=== PATIENT | male | born 1965 | race Caucasian/White ===

== ENCOUNTER 2016-07-28 14:53 | Inpatient (IN) | payer OTHER, MEDICAID ==
[~2016-07-28] VITALS: Ht 182.9 cm; Wt 106.6 kg
[~2016-07-28 14:53] MED LIST: /AUGM875TA PO; /BACL20TA PO; /CELE20CA OR; /ESOM40CA OR; ACET65TA OR; ALLE25CA PO; AMLO2.5T OR; AMLODIPINE PO; ASPI81TA3 OR; ATOR40TA PO; AUGM875T27 PO; BACT800T5 PO; BENA25CA PO; BRIN10TA PO; BUDE150T OR; COLA100C2 OR; CYCL10TA PO; CYMB60CA3 PO; DULO1CAP2 PO; ENDOCET PO; FENO145T PO; FENO54TA2 PO; FLEXERIL PO; HYDR12.55 PO; HYDR25TA6 OR; HYDROCHLORIZIDE PO; INSUH10VL; INSULIN PUMP; INSURSDRX SC; LAC-12LO3 TOP; LISI40TA OR; LYRI150C PO; MELOPOW PO; MILKSUS PO; MIRA255PW PO; MOM30SS PO; MULTIVIT PO; NEXI40CA PO; NOVOINJ3 SC; OXYC15TA50 OR; OXYC15TA50 PO; OXYC30TA4 PO; OXYCO5TA PO; PERC5TAB6 PO; PERC5TAB8 OR; PERCOCET PO; PRAM0.5T4 PO; PREG50CA OR; ROCE1INJ4 IV; TRAM50TA2 PO; TYLE325T5 PO; VITA500T OR; XANA0.25 PO; XANA0.5T OR; XANA0.5T PO; ZINC220C OR; ZOLO100T OR; endocet PO; fleets enema PR
[2016-07-28] MEDS ORDERED: LISI2.5T3 (15:07)
[2016-07-28] MEDS ORDERED: DULO1CAP2 PO (15:07)
[2016-07-28] MEDS ORDERED: AMLO2.5T (15:07)
[2016-07-28] MEDS ORDERED: MORPHINE 4 MG/ML 1ML SYRINGE IV ONE (16:15)
[2016-07-28] MEDS ORDERED: NS 1,000 ML IV ONE (16:15)
[2016-07-28] MEDS ORDERED: ONDANSETRON 4MG/2ML VIAL (J2405) IV ONE (16:15)
[2016-07-28] MEDS ORDERED: CEFTAROLINE FOSAMIL 600 MG in D5W MINI-BAG PLUS 50 ML IV ONE (16:15)
[2016-07-28 17:09] LABS: BASO # 0.1 K/mm3 (0.0-0.2); BASO % 0.6 % (0.0-1.0); EOS # 0.4 K/mm3 (0.0-0.50); EOS % 2.4 % (0.0-3.0); LARGE UNSTAINED CELL # 0.3 K/mm3 (0.0-0.4); LARGE UNSTAINED CELL % 2.1 % (0.0-4.0); LYMPH # 3.2 K/mm3 (1.5-4.5); LYMPH % 19.7 % (24.0-44.0); MEAN CORPUSCULAR HEMOGLOBIN 29.5 pg (27.0-33.0); MEAN CORPUSCULAR HGB CONC 32.8 g/dl (32.0-36.5); MEAN CORPUSCULAR VOLUME 89.9 fl (80.0-96.0); MONO # 1.2 K/mm3 (0.0-0.8); MONO % 7.2 % (0.0-5.0); NEUTROPHILS # 10.9 K/mm3 (1.8-7.7); PLATELET COUNT, AUTOMATED 409 k/mm3 (150-450)
--- NOTE | 2016-07-28 17:44 | REP ---
LEFT FOOT, FOUR VIEWS: HISTORY: 3rd toe infection. There is absence of the tuft of the distal phalange of the 1st digit. There is no acute fracture or dislocation. The joint spaces are normal in appearance. There is soft-tissue swelling of the 3rd digit. A defect is present in the soft-tissue overlying the distal phalange of the 3rd digit. IMPRESSION: There is no acute fracture or dislocation. Signed by Charles Hay MD 07/29/2016 08:16 A
[2016-07-28 18:18] LABS: ALBUMIN 2.9 GM/DL (3.2-5.2); ALBUMIN/GLOBULIN RATIO 0.83 (1.00-1.93); BILIRUBIN,DIRECT 0.2 MG/DL (0.0-0.2); BILIRUBIN,TOTAL 0.4 MG/DL (0.2-1.0); CALCIUM LEVEL 8.1 MG/DL (8.5-10.1); CREATININE FOR GFR 1.95 MG/DL (0.70-1.30); GLOMERULAR FILTRATION RATE 39.1 (>60); TOTAL PROTEIN 6.4 GM/DL (6.4-8.2)
[2016-07-28 18:19] LABS: POTASSIUM SERUM 5.9 MEQ/L (3.5-5.1)
[2016-07-28] MEDS ORDERED: LYRI300C PO (18:35)
[2016-07-28] MEDS ORDERED: AMLO2.5T PO (18:35)
[2016-07-28] MEDS ORDERED: LISI2.5T3 PO (18:35)
[2016-07-28] MEDS ORDERED: GLUCOSE 4 GM CHEW TABLET PO PRN (18:45)
[2016-07-28] MEDS ORDERED: ACETAMINOPHEN TAB 650MG DOSE (2X325MG) PO PRN (18:45)
[2016-07-28] MEDS ORDERED: ALPRAZolam 0.25 MG TAB PO PRN (18:45)
[2016-07-28] MEDS ORDERED: GLUCAGON FOR INJ 1 MG VIAL (J1610) SC PRN (18:45)
[2016-07-28] MEDS ORDERED: ONDANSETRON 4 MG TAB (S0181) PO PRN (18:45)
[2016-07-28] MEDS ORDERED: ONDANSETRON 4MG/2ML VIAL (J2405) IV PRN (18:45)
[2016-07-28] MEDS ORDERED: DEXTROSE 50% 50 ML SYRINGE IV PRN (18:45)
[2016-07-28] MEDS ORDERED: SOD POLYSTYRENE SULFONATE SUSP 15 GM/60 ML UD PO ONE (19:15)
--- NOTE | 2016-07-28 19:23 | HPEPDOC ---
Medical History and Physical Date of Admission Jul 28, 2016 at 18:44 History and Physical HISTORY AND PHYSICAL Date of admission: 07/28/2016 PCP: Dr. Fischer at [facility] Chief complaint: My shower maid told me to come to the hospital HPI: 50-year-old male with type 1 diabetes mellitus, hypertension, hyperlipidemia, fibromyalgia, depression who presented with worsening erythema and open sore on his left third toe. He reports that he has been following with podiatry for several months for this wound, and last week he was started on Bactrim. He is concerned today that it was getting more red and starting to spread into his calf, so he called his shower maid. His shower maid saw him in the office today, and recommended that he come immediately to the emergency department. Past medical history: Diabetes mellitus type 1, hypertension, hyperlipidemia, fibromyalgia, depression Past surgical history: Splenectomy, hernia repair, orthopedic spine surgery, cholecystectomy, appendectomy, amputation of right great toe Family history: Diabetes mellitus in his father, hypertension and CVA in multiple family members Social history: The patient currently smokes less than half a pack per day. He uses occasional marijuana with the last use being over the weekend. He also reports that he drinks approximately 2 times weekly. If he is drinking by himself, he states he usually has about 1 drink. However, he states if he is drinking with his friends, he has an entire 12 pack. Patient does not currently work as he is disabled Allergies: Fentanyl, hydromorphone, morphine, oxycodone Review of systems: General: Negative for fever and chills Eyes: Negative for vision changes and ocular discharge ENT: Negative for sore throat and nose bleed Cardiovascular: Negative for palpitations. Positive for chest pain yesterday that was located centrally and felt like someone was putting a lot of pressure on his chest. He states that he saw his primary care physician at the time, he did an EKG and was unconcerned. He is not having chest pain currently. Respiratory: Positive for cough. Negative for shortness of breath GI: Positive for 1 episode of emesis last night. Negative for nausea, diarrhea, constipation Musculoskeletal: Positive for chronic neck and back pain that is at baseline Skin: Positive for erythema of the left calf, as well as chronic open sore of the left third toe Neuro: Positive for dizziness. Negative for headache. Positive for chronic numbness and tingling in all 4 extremities secondary to his diabetic neuropathy. Psych: Negative for suicidal ideation and depression Endocrine: Negative for polyuria : Negative for dysuria Heme: Negative for Bruising and bleeding Home meds: See below Physical exam: Vital signs: Vital Sign - Last 24 Hours 07/28/16 07/28/16 07/28/16 07/28/16 14:54 16:14 16:42 17:00 Temp 99.5 99.1 Pulse 111 Resp 20 18 18 B/P 162/82 Pulse Ox 99 O2 Delivery Room Air 07/28/16 17:48 Temp 98.6 Pulse 98 Resp 20 B/P 131/71 Pulse Ox 95 O2 Delivery Room Air Gen.: awake, alert, no acute distress Eyes: Extraocular movements intact, normal sclera ENT: Moist mucous membranes Cardiovascular: RRR, no murmurs rubs or gallops Lungs: clear to auscultation bilaterally, no rales, rhonchi, or wheeze Abdomen: Soft, NT/ND, normal BS Musculoskeletal: normal range of motion Extremities: No peripheral edema of RLE; LLE has open draining wound on 3rd toe with erythema and edema extending into the calf Neuro: alert and oriented 3, normal speech, no focal deficits Psych: Normal mood with congruent affect Labs and radiology: See below White count 16.1 Blood and wound cultures are pending Lactate is unremarkable K 5.9 Creatinine 1.95 CRP 15.4 Assessment and plan: 50-year-old male with type 1 diabetes mellitus, hypertension, hyperlipidemia, fibromyalgia, depression who was admitted with cellulitis of the left lower extremity. 1. Cellulitis of the left lower extremity: Given the patient's diabetes and long -standing wound, we will get an MRI to assess for possible osteomyelitis. Blood and wound cultures are already pending. We will also start the patient on vancomycin, as well as Zosyn for pseudomonal coverage. CRP is elevated at 15.6, and we will continue to trend. The patient also has a leukocytosis of 16, however, he is afebrile. 2. Hyperkalemia: Potassium is 5.9 upon admission. We will get a stat EKG. The patient also receive a dose of Kayexalate and we'll recheck his potassium in 6 hours. We will hold his home KELTON inhibitor. If there are any EKG changes, we will monitor him on telemetry. Diabetes mellitus type 1: We will continue the patient on his home insulin pump. We will do before meals and at bedtime fingersticks, but the patient will cover himself with insulin pump. 4. Hypertension: Continue home Norvasc. As mentioned above, we'll be holding the home KELTON inhibitor. 5. Depression and fibromyalgia: Continue home Flexeril, Cymbalta, Xanax, Lyrica , and tramadol. 6. Hyperlipidemia: Continue home statin. 7. Chest pain: The patient reports that yesterday while he was seen his primary care physician, he experienced some central chest pain that felt like something heavy was on his chest. He states that the time, his PCP did an EKG and was unconcerned. We will trend cardiac markers. 8. Chronic kidney disease: This is most likely secondary to the patient's long- standing diabetes. It is unclear exactly what stage the patient is or what his baseline creatinine is. Upon today's labs his creatinine is 1.95, and the most recent creatinine we have is several years ago which was in the low to mid ones. We will be holding the patient's home KELTON inhibitor and we'll continue to closely monitor his creatinine. DVT prophylaxis: Renally dosed Lovenox Dispo: admit as inpatient to the service of Dr. Najera CODE STATUS: Full Code Vital Signs see above Laboratory Data Labs 24H Laboratory Tests 2 07/28/16 16:47: White Blood Count 16.0H, Red Blood Count 3.73L, Hemoglobin 11.0L, Hematocrit 33.6L, Mean Corpuscular Volume 89.9, Mean Corpuscular Hemoglobin 29.5, Mean Corpuscular Hemoglobin Concent 32.8, Red Cell Distribution Width 13.0, Platelet Count 409, Neutrophils (%) (Auto) 68.0H, Lymphocytes (%) (Auto) 19.7L, Monocytes (%) (Auto) 7.2H, Eosinophils (%) (Auto) 2.4, Basophils (%) (Auto) 0.6 , Neutrophils # (Auto) 10.9H, Lymphocytes # (Auto) 3.2, Monocytes # (Auto) 1.2H , Eosinophils # (Auto) 0.4, Basophils # (Auto) 0.1, Lactic Acid (Sepsis) 1.8, Large Unclassified Cells # 0.3, Large Unclassified Cells % 2.1 07/28/16 17:45: Aspartate Amino Transf (AST/SGOT) 23, Alanine Aminotransferase (ALT/SGPT) 26, Alkaline Phosphatase 124H, Total Bilirubin 0.4, Direct Bilirubin 0.2, Albumin 2.9L, Albumin/Globulin Ratio 0.83L, Anion Gap 5L, C-Reactive Protein, Quantitative 15.40H, Calcium Level 8.1L, Glomerular Filtration Rate 39.1L, Total Protein 6.4 CBC/BMP Laboratory Tests 07/28/16 16:47 Red Blood Count 3.73 L, Mean Corpuscular Volume 89.9, Mean Corpuscular Hemoglobin 29.5, Mean Corpuscular Hemoglobin Concent 32.8, Red Cell Distribution Width 13.0, Neutrophils (%) (Auto) 68.0 H, Lymphocytes (%) (Auto) 19.7 L, Monocytes (%) (Auto) 7.2 H, Eosinophils (%) (Auto) 2.4, Basophils (%) ( Auto) 0.6, Neutrophils # (Auto) 10.9 H, Lymphocytes # (Auto) 3.2, Monocytes # ( Auto) 1.2 H, Eosinophils # (Auto) 0.4, Basophils # (Auto) 0.1 07/28/16 17:45 Microbiology Microbiology 07/28/16 Blood Culture, Received Pending 07/28/16 Gram Stain, Received Pending 07/28/16 Wound Culture, Received Pending Home Medications Scheduled Amlodipine Besylate (Amlodipine Besylate) 2.5 Mg Tab 2.5 MG PO DAILY Atorvastatin Calcium (Atorvastatin Calcium) 40 Mg Tab 40 MG PO DAILY Cyclobenzaprine HCl (Cyclobenzaprine HCl) 10 Mg Tab 10 MG PO DAILY Duloxetine Hcl (Duloxetine HCl) 30 Mg Cap 30 MG PO DAILY STARTED 30MG FOR 7 DAYS ON 07/27, THEN INCREASING TO 60 MG Esomeprazole Magnesium Trihydr (Nexium) 40 Mg Cap 40 MG PO DAILY Fenofibrate (Fenofibrate) 54 Mg Tab 54 MG PO DAILY Insulin Aspart (Novolog) 100 U/Ml Inj 0 ASDIRECTED INSULIN PUMP Insulin Human Regular (Humulin R) 1 Units/0.01 Ml Soln 1 DOSE SC ASDIRECTED FOR INSULIN PUMP FAILURE Lisinopril (Lisinopril) 2.5 Mg Tab 2.5 MG PO DAILY Pregabalin (Lyrica) 300 Mg Cap 300 MG PO TID Scheduled PRN Alprazolam (Xanax) 0.25 Mg Tab 0.25 MG PO TID PRN PRN ANXIETY Lactic Acid (Lac-Hydrin) 12 % Lot 1 DOSE TOP BID PRN PRN DRY SKIN APPLIES TO LEGS AND FEET Tramadol HCl (Tramadol HCl) 50 Mg Tab 50-100 MG PO Q4H PRN PRN PAIN TOOK 2 TABS 0730 AND 1 TAB AT 1300 MDD=8 TABS Allergies Coded Allergies: Hydromorphone (Verified Allergy, Intermediate, RASH, 08/24/12) Oxycodone (Unverified Allergy, Unknown, RASH, CAN TAKE WITH BENADRYL, ) Fentanyl (Verified Adverse Reaction, Mild, ITCHING, 11/06/12) Morphine (Verified Adverse Reaction, Mild, ITCHING, 07/28/16) pt states he is not allergic to morphine it just makes him "itch after 2 or 3 doses". OK to take RUBIN LEO Jul 28, 2016 19:23
[2016-07-28] MEDS ORDERED: VANCOMYCIN HCL 1,000 MG, VIAL MATE ADAPTER 1 EACH in D5W 250 ML IV ONE (21:00)
[2016-07-28 21:50] VITALS: BP 134/72
--- NOTE | 2016-07-28 21:50 | REPUSA ---
MRI of the left foot Clinical statement: cellulitis, rule out osteomyelitis. Technique: Multiecho multiplanar MRI images of the left foot were obtained within without administrat ion of intravenous gadolinium contrast. No comparison is available. Findings: The osseous structures demonstrate uniform and normal bone marrow signal. No osseous tumors or masses are appreciated. There is no evidence of any acute fractures. The joints are well maintain ed. Mild superficial soft tissue swelling in the dorsum of the foot is noted. There is no focal soft tissue mass or fluid collection identified. Impression: 1. No evidence for osteomyelitis. 2. Mild superficial soft tissue swelling along the dorsum of the foot.
[2016-07-28] MEDS ORDERED: VANCOMYCIN HCL 500 MG in D5W MINI-BAG PLUS 100 ML IV ONE (22:00)
[2016-07-28] MEDS: PREGABALIN 100 MG CAP (LYRICA) PO SCH (22:29)
[2016-07-28] MEDS: traMADol 50 MG TAB PO PRN (22:30)
--- NOTE | 2016-07-28 23:55 | PHACANCOPD ---
PHARMACY VANCOMYCIN DOSING Pt Demographics Demographics Patient Age:50 , Weight:106.594 , Gender: male Events Past 24 Hours Events Past 24 Hours: NO: Change in CrCl, Dialysis, Diuretic Therapy, Elevation in WBC, Fever, Other, Pending Diagnostics, Pending Procedures Vancomycin Vancomycin Target Ranges: 15-20 mcg/ml Vancomycin Load Y/N: Yes Load Dose Date Time Vancomycin Load Dose: 1.5GM Date: 07/28/16 Time: 21:00 Vancomycin Dose Date: 07/29/16. Current Vancomycin Dose: [1GM IV Q24H 06:00] Intermittent Dosing?: No Labs Labs Laboratory Tests 07/28/16 16:47 Red Blood Count 3.73 L, Mean Corpuscular Volume 89.9, Mean Corpuscular Hemoglobin 29.5, Mean Corpuscular Hemoglobin Concent 32.8, Red Cell Distribution Width 13.0, Neutrophils (%) (Auto) 68.0 H, Lymphocytes (%) (Auto) 19.7 L, Monocytes (%) (Auto) 7.2 H, Eosinophils (%) (Auto) 2.4, Basophils (%) ( Auto) 0.6, Neutrophils # (Auto) 10.9 H, Lymphocytes # (Auto) 3.2, Monocytes # ( Auto) 1.2 H, Eosinophils # (Auto) 0.4, Basophils # (Auto) 0.1 07/28/16 17:45 Micro Microbiology 07/28/16 Blood Culture, Received Pending 07/28/16 Gram Stain, Received Pending 07/28/16 Wound Culture, Received Pending Creatinine Clearance Date:07/28/16. Creatinine Clearance: [<50 ml/min]. Assessment and Plan Maintaining Current Dose?: Yes Reason for dose change: Other Pharmacist Note Pharmacist Note Date: 07/28/16. Pharmacist note: 50YO MALE, 72" in HEIGHT, 106KG in WEIGHT ADMITTED WITH CELLULITIS OF LLE. SCR 1.95, CRCL <50 ml/min VANCO 1.5GM IV LD @ 21:00 FOLLOWED BY VANCO 1GM IV Q24H STARTING AT 6AM ORDERED per PRESCRIBER DRAKE CHAVES TO FOLLOW WHEN AT [facility] Jul 28, 2016 23:55
[2016-07-29] MEDS: PIPERACILLIN/TAZOBACTAM SOD 3.375 GM in D5W MINI-BAG PLUS 50 ML IV SCH ×5 (01:21→23:28)
[2016-07-29 02:21] LABS: POTASSIUM SERUM 5.1 MEQ/L (3.5-5.1)
[2016-07-29] MEDS: VANCOMYCIN HCL 1,000 MG, VIAL MATE ADAPTER 1 EACH in D5W 250 ML IV SCH (05:24)
[2016-07-29] MEDS: traMADol 50 MG TAB PO PRN ×3 (05:28→15:37)
[2016-07-29 06:00] VITALS: BP 125/62
[2016-07-29 06:57] LABS: BASO # 0.2 K/mm3 (0.0-0.2); BASO % 1.5 % (0.0-1.0); EOS # 0.5 K/mm3 (0.0-0.50); EOS % 4.6 % (0.0-3.0); LARGE UNSTAINED CELL # 0.3 K/mm3 (0.0-0.4); LARGE UNSTAINED CELL % 2.6 % (0.0-4.0); LYMPH # 2.7 K/mm3 (1.5-4.5); LYMPH % 21.2 % (24.0-44.0); MEAN CORPUSCULAR HEMOGLOBIN 29.5 pg (27.0-33.0); MEAN CORPUSCULAR HGB CONC 31.6 g/dl (32.0-36.5); MEAN CORPUSCULAR VOLUME 93.5 fl (80.0-96.0); MONO # 1.2 K/mm3 (0.0-0.8); MONO % 10.7 % (0.0-5.0); NEUTROPHILS # 6.8 K/mm3 (1.8-7.7); NEUTROPHILS % 59.4 % (36.0-66.0); PLATELET COUNT, AUTOMATED 445 k/mm3 (150-450); RED CELL DISTRIBUTION WIDTH 13.2 % (11.5-14.5); WHITE BLOOD COUNT 11.4 K/mm3 (4.0-10.0)
[2016-07-29 07:16] LABS: CALCIUM LEVEL 8.4 MG/DL (8.5-10.1); CREATININE FOR GFR 1.87 MG/DL (0.70-1.30); GLOMERULAR FILTRATION RATE 41.1 (>60); MAGNESIUM LEVEL 1.8 MG/DL (1.8-2.4)
[2016-07-29] MEDS: PANTOPRAZOLE 40MG TAB (PROTONIX) PO SCH (08:54)
[2016-07-29] MEDS: ATORVASTATIN 20 MG TAB PO SCH (08:54)
[2016-07-29] MEDS: DULoxetine 30 MG CAP (CYMBALTA) PO SCH (08:55)
[2016-07-29] MEDS: CYCLOBENZAPRINE 10 MG TAB PO SCH (08:55)
[2016-07-29] MEDS: PREGABALIN 100 MG CAP (LYRICA) PO SCH ×3 (08:55→19:57)
[2016-07-29] MEDS ORDERED: ENOXAPARIN 30 MG/0.3 ML SYR (J1650) SC SCH (09:00)
[2016-07-29] MEDS ORDERED: LISINOPRIL *2.5 MG* TAB PO SCH (09:00)
[2016-07-29] MEDS ORDERED: ENOXAPARIN 40 MG/0.4 ML SYRINGE (J1650) SC SCH (09:00)
[2016-07-29] MEDS ORDERED: PERCOCET 5MG/325MG TAB PO ONE (11:45)
--- NOTE | 2016-07-29 12:12 | IPNPDOC ---
Subjective Date Seen The patient was seen on 07/29/16. Subjective Chief Complaint/HPI The patient is a 50-year-old male admitted with a reason for visit of Cellulitis Of Left Foot. General: Denies: Chills, Night Sweats Constitutional: Denies: Chills, Fever Eyes: Denies: Pain, Vision change ENT: Denies: Ear Pain, Head Aches Skin: Denies: Lesions, Rash Pulmonary: Denies: Cough, Dyspnea Cardiovascular: Denies: Chest Pain, Palpitations Gastrointestinal: Denies: Nausea, Vomiting Genitourinary: Denies: Dysuria, Frequency Hematologic: Denies: Bleeding Excessively, Bruising Musculoskeletal: Reports: Foot Pain (Left foot) Objective Physical Examination General Exam: Positive: Alert, Cooperative, No Acute Distress ENT Exam: Positive: Atraumatic, Mucous membr. moist/pink Neck Exam: Negative: JVD Chest Exam: Positive: Clear to auscultation, Normal air movement Heart Exam: Positive: Normal S1, Normal S2, Rate Normal Abdomen Exam: Positive: Soft, Negative: Tenderness Extremity Exam: Positive: Other (LLE with 3rd digit noted to have an open wound with no purulant drainage or bleeding noted. Erythema extending through foot and upwards towards the calf noted) Assessment /Plan Plan/VTE VTE Prophylaxis Ordered?: Yes Plan Cellulitis of the left lower extremity MRI with no evidence of osteomyelitis noted. Blood and wound cultures pending. Cont vancomycin, zosyn for now for empiric coverage until cultures finalize. CRP trending downwardt 15.6-->14.1 Leukocytosis trending downward as well 16-->11K Lactic Acid level WNL Patient remains afebrile and hemodynamically stable We will continue to monitor the patient on empiric antibiotics and trend his course Podiatry consulted Chronic Kidney Disease Unknown baseline serum creatinine (Baseline in 2014 was ~1.5) Serum creatinine trending downward here 1.95-->1.87 We will cont to hold nephrotoxins at this time Hyperkalemia, resolved Serum K wnl this AM on lab Diabetes mellitus type 1 Continue insulin pump therapy Hypertension Continue Norvasc Depression, fibromyalgia Continue Flexeril, Cymbalta, Xanax, Lyrica, and tramadol. Hyperlipidemia Continue statin. Chest pain, resolved EKG with no acute changes on admission Troponins negative x 3 We will cont to monitor the patient DVT prophylaxis: Heparin SC Dispo-We will cont to monitor the patient's progress on empiric antibiotics until cultures become available, Podiatry consulted for further evaluation. VS, I&O, [facility] Vital Signs/I&O Vital Signs Date Time Temp Pulse Resp B/P Pulse Ox O2 Delivery O2 Flow Rate FiO2 07/29/16 11:04 18 07/29/16 08:54 90 125/62 07/29/16 06:00 96.5 92 Room Air I&O- Last 24 Hours up to 6 AM 07/29/16 06:00 Intake Total 420 ml Output Total 0 ml Balance 420 ml Laboratory Data 24H LABS Laboratory Tests 2 07/28/16 16:47: White Blood Count 16.0H, Red Blood Count 3.73L, Hemoglobin 11.0L, Hematocrit 33.6L, Mean Corpuscular Volume 89.9, Mean Corpuscular Hemoglobin 29.5, Mean Corpuscular Hemoglobin Concent 32.8, Red Cell Distribution Width 13.0, Platelet Count 409, Neutrophils (%) (Auto) 68.0H, Lymphocytes (%) (Auto) 19.7L, Monocytes (%) (Auto) 7.2H, Eosinophils (%) (Auto) 2.4, Basophils (%) (Auto) 0.6 , Neutrophils # (Auto) 10.9H, Lymphocytes # (Auto) 3.2, Monocytes # (Auto) 1.2H , Eosinophils # (Auto) 0.4, Basophils # (Auto) 0.1, Lactic Acid (Sepsis) 1.8, Large Unclassified Cells # 0.3, Large Unclassified Cells % 2.1 07/28/16 17:45: Aspartate Amino Transf (AST/SGOT) 23, Alanine Aminotransferase (ALT/SGPT) 26, Alkaline Phosphatase 124H, Total Bilirubin 0.4, Direct Bilirubin 0.2, Albumin 2.9L, Albumin/Globulin Ratio 0.83L, Anion Gap 5L, C-Reactive Protein, Quantitative 15.40H, Calcium Level 8.1L, Glomerular Filtration Rate 39.1L, Total Protein 6.4 07/28/16 19:22: Creatine Kinase MB 4.8H, Creatine Kinase MB Relative Index 1.34, Total Creatine Kinase 356H, Troponin I < 0.02 07/29/16 01:43: Creatine Kinase MB 4.4H, Creatine Kinase MB Relative Index 1.61, Total Creatine Kinase 273, Troponin I < 0.02, Potassium Level 5.1 07/29/16 06:43: Anion Gap 8, White Blood Count 11.4H, Red Blood Count 3.71L, Hemoglobin 11.0L, Hematocrit 34.7L, Mean Corpuscular Volume 93.5, Mean Corpuscular Hemoglobin 29.5 , Mean Corpuscular Hemoglobin Concent 31.6L, Red Cell Distribution Width 13.2, Platelet Count 445, Neutrophils (%) (Auto) 59.4, Lymphocytes (%) (Auto) 21.2L, Monocytes (%) (Auto) 10.7H, Eosinophils (%) (Auto) 4.6H, Basophils (%) (Auto) 1.5H, Neutrophils # (Auto) 6.8, Lymphocytes # (Auto) 2.7, Monocytes # (Auto) 1.2H, Eosinophils # (Auto) 0.5, Basophils # (Auto) 0.2, C-Reactive Protein, Quantitative 14.10H, Blood Urea Nitrogen 21H, Creatinine 1.87H, Sodium Level 136 , Potassium Level 5.0, Chloride Level 102, Carbon Dioxide Level 26, Calcium Level 8.4L, Glomerular Filtration Rate 41.1L, Large Unclassified Cells # 0.3, Large Unclassified Cells % 2.6, Magnesium Level 1.8 07/29/16 10:42: Creatine Kinase MB 4.9H, Creatine Kinase MB Relative Index 1.48, Total Creatine Kinase 330H, Troponin I < 0.02 CBC/BMP Laboratory Tests 07/28/16 16:47 Red Blood Count 3.73 L, Mean Corpuscular Volume 89.9, Mean Corpuscular Hemoglobin 29.5, Mean Corpuscular Hemoglobin Concent 32.8, Red Cell Distribution Width 13.0, Neutrophils (%) (Auto) 68.0 H, Lymphocytes (%) (Auto) 19.7 L, Monocytes (%) (Auto) 7.2 H, Eosinophils (%) (Auto) 2.4, Basophils (%) ( Auto) 0.6, Neutrophils # (Auto) 10.9 H, Lymphocytes # (Auto) 3.2, Monocytes # ( Auto) 1.2 H, Eosinophils # (Auto) 0.4, Basophils # (Auto) 0.1 07/28/16 17:45 07/29/16 01:43 Total Creatine Kinase 273 07/29/16 06:43 Red Blood Count 3.71 L, Mean Corpuscular Volume 93.5, Mean Corpuscular Hemoglobin 29.5, Mean Corpuscular Hemoglobin Concent 31.6 L, Red Cell Distribution Width 13.2, Neutrophils (%) (Auto) 59.4, Lymphocytes (%) (Auto) 21.2 L, Monocytes (%) (Auto) 10.7 H, Eosinophils (%) (Auto) 4.6 H, Basophils (% ) (Auto) 1.5 H, Neutrophils # (Auto) 6.8, Lymphocytes # (Auto) 2.7, Monocytes # (Auto) 1.2 H, Eosinophils # (Auto) 0.5, Basophils # (Auto) 0.2, Calcium Level 8.4 L Microbiology Microbiology 07/28/16 Blood Culture, Received Pending 07/28/16 Gram Stain - Final, Resulted 07/28/16 Wound Culture, Resulted Pending MIKHAIL JONES MD Jul 29, 2016 12:12
[2016-07-29 14:00] VITALS: BP 131/82
[2016-07-29] MEDS ORDERED: MORPHINE 2 MG/ML 1ML SYRINGE IV ONE (16:00)
--- NOTE | 2016-07-29 16:41 | ECGEPIP ---
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
[2016-07-29] MEDS: SILVER SULFADIAZINE 1% CR 50 GM JAR TOP SCH (18:23)
[2016-07-29] MEDS ORDERED: diphenhydrAMINE 25 MG CAP PO PRN (19:30)
[2016-07-29] MEDS: PERCOCET 5MG/325MG TAB PO PRN (19:56)
[2016-07-29] MEDS: MORPHINE 2 MG/ML 1ML SYRINGE IV PRN (21:37)
[2016-07-29 22:00] VITALS: BP 165/83
[2016-07-30] MEDS: traMADol 50 MG TAB PO PRN ×2 (01:08→20:10)
[2016-07-30] MEDS: PIPERACILLIN/TAZOBACTAM SOD 3.375 GM in D5W MINI-BAG PLUS 50 ML IV SCH ×3 (05:11→17:45)
[2016-07-30] MEDS: HEPARIN SOD (PORCINE) 5000 UNITS/ML VIAL SQ SCH ×2 (05:12→14:53)
[2016-07-30] MEDS: PERCOCET 5MG/325MG TAB PO PRN ×2 (05:12→16:57)
[2016-07-30 06:00] VITALS: BP 153/74
[2016-07-30] MEDS: VANCOMYCIN HCL 1,000 MG, VIAL MATE ADAPTER 1 EACH in D5W 250 ML IV SCH (06:26)
[2016-07-30 07:20] LABS: BASO # 0.1 K/mm3 (0.0-0.2); BASO % 1.3 % (0.0-1.0); EOS # 0.5 K/mm3 (0.0-0.50); EOS % 5.4 % (0.0-3.0); LARGE UNSTAINED CELL # 0.3 K/mm3 (0.0-0.4); LARGE UNSTAINED CELL % 3.5 % (0.0-4.0); LYMPH # 2.3 K/mm3 (1.5-4.5); LYMPH % 21.3 % (24.0-44.0); MEAN CORPUSCULAR HEMOGLOBIN 29.7 pg (27.0-33.0); MEAN CORPUSCULAR VOLUME 92.9 fl (80.0-96.0); MONO # 0.9 K/mm3 (0.0-0.8); NEUTROPHILS # 5.4 K/mm3 (1.8-7.7); NEUTROPHILS % 58.4 % (36.0-66.0); PLATELET COUNT, AUTOMATED 446 k/mm3 (150-450); RED CELL DISTRIBUTION WIDTH 13.2 % (11.5-14.5); WHITE BLOOD COUNT 9.3 K/mm3 (4.0-10.0)
[2016-07-30] MEDS: MORPHINE 2 MG/ML 1ML SYRINGE IV PRN ×2 (07:32→11:33)
[2016-07-30 07:36] LABS: CALCIUM LEVEL 8.3 MG/DL (8.5-10.1); CREATININE FOR GFR 1.61 MG/DL (0.70-1.30); GLOMERULAR FILTRATION RATE 48.8 (>60); MAGNESIUM LEVEL 1.8 MG/DL (1.8-2.4); POTASSIUM SERUM 5.1 MEQ/L (3.5-5.1)
[2016-07-30 08:38] VITALS: BP 184/102
[2016-07-30] MEDS: DULoxetine 30 MG CAP (CYMBALTA) PO SCH (09:23)
[2016-07-30] MEDS: CYCLOBENZAPRINE 10 MG TAB PO SCH (09:24)
[2016-07-30] MEDS: ATORVASTATIN 20 MG TAB PO SCH (09:24)
[2016-07-30] MEDS: PANTOPRAZOLE 40MG TAB (PROTONIX) PO SCH (09:25)
[2016-07-30] MEDS: SILVER SULFADIAZINE 1% CR 50 GM JAR TOP SCH (09:26)
[2016-07-30] MEDS: PREGABALIN 100 MG CAP (LYRICA) PO SCH ×3 (10:01→20:11)
--- NOTE | 2016-07-30 10:26 | CR ---
DATE OF CONSULTATION: 07/29/2016 REASON FOR CONSULTATION: Left foot infection. Priyank Kwan is a 50-year-old male who presented to [facility], had admission due to left foot cellulitis. He has a chronic left 3rd toe ulcer, which had been treated by his research chef, Dr. Fischer, in [place] at the [facility]. He states he had been on Bactrim approximately 1 week. He was seen again by Dr. Fischer on Wednesday and was told to go to the hospital due to worsening redness. He states he has been having increasing redness and pain over the last week. The 3rd toe is very sore. Past medical history is significant for diabetes, hypertension, hyperlipidemia, fibromyalgia, depression. Past surgical history is significant for splenectomy, hernia repair, spine surgery, cholecystectomy, appendectomy, amputation of right hallux. Family history is significant for diabetes, hypertension, cerebrovascular accident (CVA). SOCIAL HISTORY: The patient admits smoking approximately 1/2 pack per day, occasional marijuana use, occasional alcohol use. ALLERGIES: FENTANYL, HYDROMORPHONE, MORPHINE, OXYCODONE. VITAL SIGNS: The patient has been febrile over 24 hours. Maximum temperature (Tmax) was 99.5. LABORATORIES: White blood cell count on admission was 16, down to 11.4 today. ESR on admission was 15.4, down to 14.1. Gram stain shows gram positive rods and cocci. Culture results are pending. IMAGING: Foot x-ray is reviewed. There has been amputation of the distal phalanx to the left hallux. Some soft tissue edema noted to the 3rd toe. There is no obvious erosion to the bones of the 3rd toe. There is no soft tissue emphysema. MRI images are reviewed. There is general cellulitis noted to the forefoot. Cellulitis again pronounced to the 3rd toe. No obvious abscess formation. No erosive signs of osteomyelitis are apparent. LOWER EXTREMITY EXAMINATION: There is general edema to the left foot with erythema extending from the 3rd toe to the dorsal forefoot. There is general tenderness to the 3rd toe. There is discoloration with ruborous discoloration to the 3rd toe with poor capillary refill time. Pulses to the feet are nonpalpable. They are audible Doppler signal. There is some purulence noted in the dressings to the 3rd toe with ulcerations noted circumferentially around the digit and distally. ASSESSMENT: This is a 50-year-old diabetic male with cellulitis, possible osteomyelitis of his left 3rd toe. PLAN: Images are reviewed. Continue current empiric antibiotics. Await culture results. Will start local wound care, Silvadene dressing. Did discuss possibility of amputation of 3rd toe. Will monitor progress of wound. If coloration of wound improves, will plan debridement of wound. If wound and toe become more cyanotic or gangrenous, will plan amputation this admission. Will reassess tomorrow.
[2016-07-30 11:15] VITALS: BP 150/90
--- NOTE | 2016-07-30 14:00 | IPNPDOC ---
Subjective Date Seen The patient was seen on 07/30/16. Subjective Chief Complaint/HPI The patient is a 50-year-old male admitted with a reason for visit of Cellulitis Of Left Foot. General: Denies: Chills, Night Sweats Constitutional: Denies: Chills, Fever Eyes: Denies: Pain, Vision change ENT: Denies: Ear Pain, Head Aches Skin: Denies: Lesions, Rash Pulmonary: Denies: Cough, Dyspnea Cardiovascular: Denies: Chest Pain, Palpitations Gastrointestinal: Denies: Nausea, Vomiting Genitourinary: Denies: Dysuria, Frequency Hematologic: Denies: Bleeding Excessively, Bruising Musculoskeletal: Reports: Foot Pain Objective Physical Examination General Exam: Positive: Alert, Cooperative, No Acute Distress ENT Exam: Positive: Atraumatic, Mucous membr. moist/pink Neck Exam: Negative: JVD Chest Exam: Positive: Clear to auscultation, Normal air movement Heart Exam: Positive: Normal S1, Normal S2, Rate Normal Abdomen Exam: Positive: Soft, Negative: Tenderness Extremity Exam: Positive: Other (LLE with 3rd digit noted to have an open wound with no purulant drainage or bleeding noted. Erythema extending through foot and upwards towards the calf noted) Assessment /Plan Plan/VTE VTE Prophylaxis Ordered?: Yes Plan Cellulitis of the left lower extremity MRI with no evidence of osteomyelitis noted. Blood and wound cultures unrevealing thus far Cont vancomycin, zosyn for now for empiric coverage until cultures finalize. CRP trending downwardt 15.6-->14.1-->9 Leukocytosis trending downward as well 16-->11K-->9K Lactic Acid level WNL Patient remains afebrile and hemodynamically stable We will continue to monitor the patient on empiric antibiotics and trend his course Podiatry consult appreciated: Wound Debridement vs Amputation of 3rd Toe discussed Chronic Kidney Disease Unknown baseline serum creatinine (Baseline in 2013 was ~1.5) Serum creatinine trending downward here 1.95-->1.87-->1.6 We will cont to hold nephrotoxins at this time Hyperkalemia, resolved Serum K wnl this AM on lab Diabetes mellitus type 1 Continue insulin pump therapy Hypertension Continue Norvasc Depression, fibromyalgia Continue Flexeril, Cymbalta, Xanax, Lyrica, and tramadol. Hyperlipidemia Continue statin. Chest pain, resolved EKG with no acute changes on admission Troponins negative x 3 We will cont to monitor the patient DVT prophylaxis: Heparin SC Dispo-We will cont to monitor the patient's progress on empiric antibiotics, and prepare him for podiatric intervention tomorrow. VS, I&O, 24H, Fishbone Vital Signs/I&O Vital Signs Date Time Temp Pulse Resp B/P Pulse Ox O2 Delivery O2 Flow Rate FiO2 07/30/16 12:01 18 07/30/16 11:15 96.7 79 150/90 100 Room Air I&O- Last 24 Hours up to 6 AM 07/30/16 06:00 Intake Total 2500 ml Output Total 5150 ml Balance -2650 ml Laboratory Data 24H LABS Laboratory Tests 2 07/29/16 16:38: Bedside Glucose (Misc Panel) 235H 07/29/16 19:44: Bedside Glucose (Misc Panel) 155H 07/30/16 06:59: Anion Gap 6L, White Blood Count 9.3, Red Blood Count 3.49L, Hemoglobin 10.4L, Hematocrit 32.4L, Mean Corpuscular Volume 92.9, Mean Corpuscular Hemoglobin 29.7 , Mean Corpuscular Hemoglobin Concent 32.0, Red Cell Distribution Width 13.2, Platelet Count 446, Neutrophils (%) (Auto) 58.4, Lymphocytes (%) (Auto) 21.3L, Monocytes (%) (Auto) 10.0H, Eosinophils (%) (Auto) 5.4H, Basophils (%) (Auto) 1.3H, Neutrophils # (Auto) 5.4, Lymphocytes # (Auto) 2.3, Monocytes # (Auto) 0.9H, Eosinophils # (Auto) 0.5, Basophils # (Auto) 0.1, C-Reactive Protein, Quantitative 8.97H, Blood Urea Nitrogen 14, Creatinine 1.61H, Sodium Level 143# , Potassium Level 5.1, Chloride Level 108H, Carbon Dioxide Level 29, Calcium Level 8.3L, Glomerular Filtration Rate 48.8L, Large Unclassified Cells # 0.3, Large Unclassified Cells % 3.5, Magnesium Level 1.8 CBC/BMP Laboratory Tests 07/30/16 06:59 Calcium Level 8.3 L, Red Blood Count 3.49 L, Mean Corpuscular Volume 92.9, Mean Corpuscular Hemoglobin 29.7, Mean Corpuscular Hemoglobin Concent 32.0, Red Cell Distribution Width 13.2, Neutrophils (%) (Auto) 58.4, Lymphocytes (%) (Auto) 21.3 L, Monocytes (%) (Auto) 10.0 H, Eosinophils (%) (Auto) 5.4 H, Basophils (% ) (Auto) 1.3 H, Neutrophils # (Auto) 5.4, Lymphocytes # (Auto) 2.3, Monocytes # (Auto) 0.9 H, Eosinophils # (Auto) 0.5, Basophils # (Auto) 0.1 Microbiology Microbiology 07/28/16 Blood Culture - Preliminary, Resulted No growth after 24 hours . All specim... 07/28/16 Gram Stain - Final, Resulted 07/28/16 Wound Culture, Resulted Pending MIKHAIL JONES MD Jul 30, 2016 14:00
--- NOTE | 2016-07-30 18:19 | IPN ---
DATE : 07/30/2016 Patient seen and examined at bedside. States pain is a little more controlled overnight. Denies nausea, vomiting, fever, or chills. Maximal temperature 96.7. Labs were reviewed. White blood cell count 9.3, down from 11.4. CRP is 8.97, down from 14.1. Toe culture results are pending. Lower extremity examination: Somewhat improvement in erythema from demarcated line. The 3rd toe is still erythematous, edematous with necrotic skin circumferentially. ASSESSMENT: A 50-year-old male with left 3rd toe cellulitis, suspected osteomyelitis. PLAN: Patient amenable to 3rd to amputation. Will schedule for tomorrow afternoon. Patient okay for light early breakfast. Nothing to eat by mouth after 8 a.m. Continue current antibiotics. Will change once speciation obtained.
[2016-07-30 20:00] VITALS: BP 157/78
[2016-07-31] VITALS (9 sets, daily range): BP systolic 132–185; BP diastolic 80–95
[2016-07-31] MEDS: PERCOCET 5MG/325MG TAB PO PRN ×3 (00:02→19:39)
[2016-07-31] MEDS: PIPERACILLIN/TAZOBACTAM SOD 3.375 GM in D5W MINI-BAG PLUS 50 ML IV SCH ×5 (00:02→23:43)
[2016-07-31] MEDS: traMADol 50 MG TAB PO PRN ×2 (02:56→23:43)
[2016-07-31] MEDS: MORPHINE 2 MG/ML 1ML SYRINGE IV PRN ×3 (05:07→15:21)
[2016-07-31] MEDS: VANCOMYCIN HCL 1,000 MG, VIAL MATE ADAPTER 1 EACH in D5W 250 ML IV SCH (06:15)
[2016-07-31 06:58] LABS: BASO # 0.1 K/mm3 (0.0-0.2); BASO % 1.3 % (0.0-1.0); EOS # 0.6 K/mm3 (0.0-0.50); EOS % 6.2 % (0.0-3.0); LARGE UNSTAINED CELL # 0.3 K/mm3 (0.0-0.4); LARGE UNSTAINED CELL % 3.3 % (0.0-4.0); LYMPH # 3.3 K/mm3 (1.5-4.5); LYMPH % 30.6 % (24.0-44.0); MEAN CORPUSCULAR HEMOGLOBIN 29.6 pg (27.0-33.0); MEAN CORPUSCULAR VOLUME 92.6 fl (80.0-96.0); MONO # 0.8 K/mm3 (0.0-0.8); NEUTROPHILS % 50.5 % (36.0-66.0); PLATELET COUNT, AUTOMATED 486 k/mm3 (150-450); RED CELL DISTRIBUTION WIDTH 13.2 % (11.5-14.5); WHITE BLOOD COUNT 9.9 K/mm3 (4.0-10.0)
[2016-07-31 07:20] LABS: ANION GAP 9 MEQ/L (8-16); BLOOD UREA NITROGEN 11 MG/DL (7-18); CALCIUM LEVEL 8.3 MG/DL (8.5-10.1); CARBON DIOXIDE LEVEL 24 MEQ/L (21-32); CHLORIDE LEVEL 109 MEQ/L (98-107); CREATININE FOR GFR 1.33 MG/DL (0.70-1.30); GLOMERULAR FILTRATION RATE > 60.0 (>60); GLUCOSE, FASTING 214 MG/DL (70-105); MAGNESIUM LEVEL 1.6 MG/DL (1.8-2.4); POTASSIUM SERUM 4.9 MEQ/L (3.5-5.1); SODIUM LEVEL 142 MEQ/L (136-145)
[2016-07-31] MEDS: ATORVASTATIN 20 MG TAB PO SCH (08:41)
[2016-07-31] MEDS: PANTOPRAZOLE 40MG TAB (PROTONIX) PO SCH (08:42)
[2016-07-31] MEDS: CYCLOBENZAPRINE 10 MG TAB PO SCH (08:42)
[2016-07-31] MEDS: DULoxetine 30 MG CAP (CYMBALTA) PO SCH (08:42)
[2016-07-31] MEDS: SILVER SULFADIAZINE 1% CR 50 GM JAR TOP SCH (08:43)
[2016-07-31] MEDS: PREGABALIN 100 MG CAP (LYRICA) PO SCH ×3 (10:21→20:41)
[2016-07-31] MEDS ORDERED: LIDOCAINE 1% SDV INJ 30 ML VIAL As Ordered ONE (14:36)
[2016-07-31] MEDS ORDERED: BUPIVACAINE HCL 0.5% 30 ML VIAL As Ordered ONE (14:36)
--- NOTE | 2016-07-31 14:48 | IPNPDOC ---
Subjective Date Seen The patient was seen on 07/31/16. Subjective Chief Complaint/HPI The patient is a 50-year-old male admitted with a reason for visit of Cellulitis Of Left Foot. General: Denies: Chills, Night Sweats Constitutional: Denies: Chills, Fever Eyes: Denies: Pain, Vision change ENT: Denies: Ear Pain, Head Aches Skin: Denies: Lesions, Rash Pulmonary: Denies: Cough, Dyspnea Cardiovascular: Denies: Chest Pain, Palpitations Gastrointestinal: Denies: Nausea, Vomiting Genitourinary: Denies: Dysuria, Frequency Hematologic: Denies: Bleeding Excessively, Bruising Objective Physical Examination General Exam: Positive: Alert, Cooperative, No Acute Distress ENT Exam: Positive: Atraumatic, Mucous membr. moist/pink Neck Exam: Negative: JVD Chest Exam: Positive: Clear to auscultation, Normal air movement Heart Exam: Positive: Normal S1, Normal S2, Rate Normal Abdomen Exam: Positive: Soft, Negative: Tenderness Extremity Exam: Positive: Other (LLE with 3rd digit noted to have an open wound with no purulant drainage or bleeding noted. Erythema extending through foot and upwards towards the calf noted) Assessment /Plan Plan/VTE VTE Prophylaxis Ordered?: Yes Plan Cellulitis of the left lower extremity s/p Amputation of the 3rd Toe on 07/[address] Rosas MRI with no evidence of osteomyelitis noted. Blood and wound cultures unrevealing thus far Cont vancomycin, zosyn for now for empiric coverage We will switch the patient to PO Antibiotics over the next 24-48hrs with Podiatry input Chronic Kidney Disease Unknown baseline serum creatinine (Baseline in 2013 was ~1.5) Serum creatinine trending downward here 1.95-->1.87-->1.6-->1.3-->1.2 We will cont to hold nephrotoxins at this time Hyperkalemia, resolved Serum K wnl this AM on lab Diabetes mellitus type 1 Continue insulin pump therapy Hypertension Continue Norvasc Depression, fibromyalgia Continue Flexeril, Cymbalta, Xanax, Lyrica, and tramadol. Hyperlipidemia Continue statin. Chest pain, resolved EKG with no acute changes on admission Troponins negative x 3 We will cont to monitor the patient DVT prophylaxis: Heparin SC Dispo-s/p Amputation of the 3rd toe yesterday. We will follow up on the patient' s progress and transition him over to PO Abx soon, and have the patient evaluated by PT for further delineation of needs/services. VS, I&O, 24H, [place] Vital Signs/I&O Vital Signs Date Time Temp Pulse Resp B/P Pulse Ox O2 Delivery O2 Flow Rate FiO2 07/31/16 11:30 96.5 72 12 168/82 97 Room Air I&O- Last 24 Hours up to 6 AM 07/31/16 06:00 Intake Total 700 ml Output Total 500 ml Balance 200 ml Laboratory Data 24H LABS Laboratory Tests 2 07/30/16 16:57: Bedside Glucose (Misc Panel) 257H 07/30/16 19:19: Bedside Glucose (Misc Panel) 257H 07/31/16 06:31: Anion Gap 9, White Blood Count 9.9, Red Blood Count 3.60L, Hemoglobin 10.7L, Hematocrit 33.4L, Mean Corpuscular Volume 92.6, Mean Corpuscular Hemoglobin 29.6 , Mean Corpuscular Hemoglobin Concent 32.0, Red Cell Distribution Width 13.2, Platelet Count 486H, Neutrophils (%) (Auto) 50.5, Lymphocytes (%) (Auto) 30.6, Monocytes (%) (Auto) 8.0H, Eosinophils (%) (Auto) 6.2H, Basophils (%) (Auto) 1.3H, Neutrophils # (Auto) 5.0, Lymphocytes # (Auto) 3.3, Monocytes # (Auto) 0.8 , Eosinophils # (Auto) 0.6H, Basophils # (Auto) 0.1, C-Reactive Protein, Quantitative 5.78H, Blood Urea Nitrogen 11, Creatinine 1.33H, Sodium Level 142, Potassium Level 4.9, Chloride Level 109H, Carbon Dioxide Level 24, Calcium Level 8.3L, Glomerular Filtration Rate > 60.0, Large Unclassified Cells # 0.3, Large Unclassified Cells % 3.3, Magnesium Level 1.6L 07/31/16 11:42: Bedside Glucose (Misc Panel) 324H CBC/BMP Laboratory Tests 07/31/16 06:31 Calcium Level 8.3 L, Red Blood Count 3.60 L, Mean Corpuscular Volume 92.6, Mean Corpuscular Hemoglobin 29.6, Mean Corpuscular Hemoglobin Concent 32.0, Red Cell Distribution Width 13.2, Neutrophils (%) (Auto) 50.5, Lymphocytes (%) (Auto) 30.6, Monocytes (%) (Auto) 8.0 H, Eosinophils (%) (Auto) 6.2 H, Basophils (%) ( Auto) 1.3 H, Neutrophils # (Auto) 5.0, Lymphocytes # (Auto) 3.3, Monocytes # ( Auto) 0.8, Eosinophils # (Auto) 0.6 H, Basophils # (Auto) 0.1 Microbiology Microbiology 07/28/16 Blood Culture - Preliminary, Resulted No Growth after 48 hours. All Specime... 07/28/16 Gram Stain - Final, Complete 07/28/16 Wound Culture - Final, Complete Staph.aureus Methicillin Resis Staphylococcus Sp Coag Neg Corynebacterium Species MIKHAIL JONES MD Jul 31, 2016 14:48 MIKHAIL JONES MD Jul 31, 2016 14:48
[2016-07-31] MEDS ORDERED: ZOSYN 3.375 GM VIAL (J2543) As Ordered ONE (17:24)
[2016-07-31] MEDS ORDERED: fentaNYL 100 MCG/2 ML INJECTION (J3010) As Ordered ONE ×2 (17:33→19:01)
[2016-07-31] MEDS ORDERED: MIDAZOLAM INJ 2 MG/2 ML VIAL (J2250) As Ordered ONE (17:33)
[2016-07-31] MEDS ORDERED: PERCOCET 5MG/325MG TAB As Ordered ONE ×2 (19:01→19:30)
[2016-07-31] MEDS: fentaNYL 100 MCG/2 ML INJECTION (J3010) IV PRN ×4 (19:05→19:20)
[2016-07-31] MEDS ORDERED: MORPHINE 2 MG/ML 1ML SYRINGE IV PRN (19:30)
[2016-07-31] MEDS ORDERED: LR 1,000 ML IV SCH (19:30)
[2016-07-31] MEDS ORDERED: ONDANSETRON 4MG/2ML VIAL (J2405) IV PRN (19:30)
[2016-08-01 00:45] VITALS: BP 150/84
[2016-08-01 02:00] VITALS: BP 164/85
[2016-08-01] MEDS: PIPERACILLIN/TAZOBACTAM SOD 3.375 GM in D5W MINI-BAG PLUS 50 ML IV SCH ×4 (05:05→23:52)
[2016-08-01] MEDS: PERCOCET 5MG/325MG TAB PO PRN ×2 (05:05→17:47)
[2016-08-01 06:00] VITALS: BP 158/84
[2016-08-01 06:10] LABS: BASO # 0.1 K/mm3 (0.0-0.2); EOS # 0.5 K/mm3 (0.0-0.50); EOS % 4.6 % (0.0-3.0); LARGE UNSTAINED CELL # 0.4 K/mm3 (0.0-0.4); LARGE UNSTAINED CELL % 3.5 % (0.0-4.0); LYMPH # 2.3 K/mm3 (1.5-4.5); LYMPH % 21.2 % (24.0-44.0); MEAN CORPUSCULAR HEMOGLOBIN 28.5 pg (27.0-33.0); MEAN CORPUSCULAR HGB CONC 30.9 g/dl (32.0-36.5); MEAN CORPUSCULAR VOLUME 92.4 fl (80.0-96.0); MONO # 0.8 K/mm3 (0.0-0.8); MONO % 7.7 % (0.0-5.0); NEUTROPHILS # 6.7 K/mm3 (1.8-7.7); PLATELET COUNT, AUTOMATED 527 k/mm3 (150-450); WHITE BLOOD COUNT 10.8 K/mm3 (4.0-10.0)
[2016-08-01 06:23] LABS: ANION GAP 6 MEQ/L (8-16); BLOOD UREA NITROGEN 8 MG/DL (7-18); CALCIUM LEVEL 8.7 MG/DL (8.5-10.1); CARBON DIOXIDE LEVEL 27 MEQ/L (21-32); CHLORIDE LEVEL 106 MEQ/L (98-107); CREATININE FOR GFR 1.24 MG/DL (0.70-1.30); GLOMERULAR FILTRATION RATE > 60.0 (>60); GLUCOSE, FASTING 260 MG/DL (70-105); MAGNESIUM LEVEL 1.5 MG/DL (1.8-2.4); POTASSIUM SERUM 4.5 MEQ/L (3.5-5.1); SODIUM LEVEL 139 MEQ/L (136-145)
[2016-08-01] MEDS: VANCOMYCIN HCL 1,000 MG, VIAL MATE ADAPTER 1 EACH in D5W 250 ML IV SCH (06:29)
[2016-08-01] MEDS: SILVER SULFADIAZINE 1% CR 50 GM JAR TOP SCH (09:00)
[2016-08-01] MEDS: PREGABALIN 100 MG CAP (LYRICA) PO SCH ×3 (09:52→20:05)
[2016-08-01] MEDS: MAGNESIUM OXIDE 400 MG TAB (MAG-OX) PO SCH ×3 (09:52→20:05)
[2016-08-01] MEDS: MORPHINE 2 MG/ML 1ML SYRINGE IV PRN (09:52)
[2016-08-01] MEDS: PANTOPRAZOLE 40MG TAB (PROTONIX) PO SCH (09:52)
[2016-08-01] MEDS: ATORVASTATIN 20 MG TAB PO SCH (09:52)
[2016-08-01] MEDS: DULoxetine 30 MG CAP (CYMBALTA) PO SCH (09:53)
[2016-08-01] MEDS: CYCLOBENZAPRINE 10 MG TAB PO SCH (09:53)
[2016-08-01 14:00] VITALS: BP 130/87
[2016-08-01] MEDS: HEPARIN SOD (PORCINE) 5000 UNITS/ML VIAL SQ SCH ×2 (14:00→20:05)
[2016-08-01 22:00] VITALS: BP_SYST 154; BP_SYST 159; BP_DIAS 82; BP_DIAS 87
[2016-08-02] MEDS: VANCOMYCIN HCL 1,000 MG, VIAL MATE ADAPTER 1 EACH in D5W 250 ML IV SCH (05:43)
[2016-08-02] MEDS: HEPARIN SOD (PORCINE) 5000 UNITS/ML VIAL SQ SCH ×3 (05:43→20:22)
[2016-08-02 06:00] VITALS: BP 135/87
[2016-08-02 06:33] LABS: BASO # 0.1 K/mm3 (0.0-0.2); EOS # 0.5 K/mm3 (0.0-0.50); EOS % 4.6 % (0.0-3.0); LARGE UNSTAINED CELL # 0.3 K/mm3 (0.0-0.4); LARGE UNSTAINED CELL % 2.1 % (0.0-4.0); LYMPH # 3.1 K/mm3 (1.5-4.5); LYMPH % 24.1 % (24.0-44.0); MEAN CORPUSCULAR HEMOGLOBIN 29.6 pg (27.0-33.0); MEAN CORPUSCULAR HGB CONC 32.1 g/dl (32.0-36.5); MEAN CORPUSCULAR VOLUME 92.2 fl (80.0-96.0); MONO # 0.8 K/mm3 (0.0-0.8); MONO % 6.6 % (0.0-5.0); NEUTROPHILS # 7.3 K/mm3 (1.8-7.7); NEUTROPHILS % 61.6 % (36.0-66.0); PLATELET COUNT, AUTOMATED 539 k/mm3 (150-450); RED CELL DISTRIBUTION WIDTH 13.2 % (11.5-14.5); WHITE BLOOD COUNT 11.8 K/mm3 (4.0-10.0)
[2016-08-02 06:57] LABS: CALCIUM LEVEL 8.6 MG/DL (8.5-10.1); CREATININE FOR GFR 1.39 MG/DL (0.70-1.30); GLOMERULAR FILTRATION RATE 57.8 (>60); MAGNESIUM LEVEL 1.6 MG/DL (1.8-2.4); POTASSIUM SERUM 4.4 MEQ/L (3.5-5.1)
[2016-08-02] MEDS: ATORVASTATIN 20 MG TAB PO SCH (08:33)
[2016-08-02] MEDS: PIPERACILLIN/TAZOBACTAM SOD 3.375 GM in D5W MINI-BAG PLUS 50 ML IV SCH ×2 (08:33→13:05)
[2016-08-02] MEDS: MAGNESIUM OXIDE 400 MG TAB (MAG-OX) PO SCH ×3 (08:33→20:23)
[2016-08-02] MEDS: DULoxetine 30 MG CAP (CYMBALTA) PO SCH (08:33)
[2016-08-02] MEDS: CYCLOBENZAPRINE 10 MG TAB PO SCH (08:33)
[2016-08-02] MEDS: PREGABALIN 100 MG CAP (LYRICA) PO SCH ×3 (08:34→20:22)
[2016-08-02] MEDS: PANTOPRAZOLE 40MG TAB (PROTONIX) PO SCH (08:34)
--- NOTE | 2016-08-02 10:00 | RO ---
DATE OF PROCEDURE: 07/31/2016 PREPROCEDURE DIAGNOSIS: Left third toe abscess, cellulitis and diabetic ulceration. POSTPROCEDURE DIAGNOSIS: Left third toe abscess, cellulitis and diabetic ulceration. PROCEDURE: Left third toe amputation. SURGEON: Terrence Rosas DPM [employer]: ANESTHESIA: Monitored anesthesia care. Preoperative injection of 20 mL of 1:1 mixture of 1% lidocaine plain, 0.5% Marcaine plain. ESTIMATED BLOOD LOSS: 20 mL. MATERIALS: #3-0 nylon. INJECTABLES: None. SPECIMENS: Left third toe. DRAINS: TLS left foot. COMPLICATIONS: None. CONDITION: Stable. HISTORY: Priyank Kwan is a 50-year-old male who was admitted to the hospital due to worsening nature of left third toe infection. He had been treated on an outpatient basis with oral Bactrim without success. He was admitted earlier this week and started on IV antibiotics. He is noted to have worsening nature of the toe with dusky appearance to the distal portion, as well as cellulitis and circumferential sloughing of the skin. Decision was made to bring him to the operating room for left third toe amputation due to worsening nature of infection, persistent pain and positive exposed bone from medial aspect of the wound. The patient, side, and site were identified and marked in the preoperative holding area. Consent was reviewed and obtained. All risks, complications and alternatives to the procedure were explained to the patient in detail and all questions were answered. DESCRIPTION OF PROCEDURE: Patient was brought to the operating room and placed on the operative table in supine position. Monitored anesthesia care was delivered by the anesthesia team. Perioperative injection of 20 mL of a 1:1 mixture of 1% lidocaine plain and 0.5% Marcaine plain were injected into the left foot. The patient received his preoperative antibiotic, Zosyn, during the procedure. The left foot was prepped and draped in normal sterile fashion. No tourniquet was applied during the procedure. An elliptical incision was made around the left third toe and carried through with a #15 blade full thickness to bone. The joint was disarticulated at the metatarsophalangeal joint. This was sent for pathology. Small pieces of the toe were sent for culture, aerobic and anaerobic. The site was irrigated with normal saline. Some necrotic tendon capsule was debrided free. The metatarsal head was inspected and appeared free of any infection or necrosis. Again, the site was copiously irrigated with normal saline solution. The nonviable tissue was again debrided until only good granular viable tissue was identified. The site was once again irrigated. TLS drain was inserted. The wound was closed with #3-0 nylon. Sterile dressings were applied. Patient was brought to the post-anesthesia care unit (PACU), vital signs stable, neurovascular status intact. He will be re-admitted to the floor for continued antibiotics and monitoring. Most likely will be discharged Wednesday on oral antibiotics.
--- NOTE | 2016-08-02 12:00 | IPNPDOC ---
Subjective Date Seen The patient was seen on 08/01/16. Subjective Chief Complaint/HPI The patient is a 50-year-old male admitted with a reason for visit of Cellulitis Of Left Foot. General: Denies: Chills, Night Sweats Constitutional: Denies: Chills, Fever Eyes: Denies: Pain, Vision change ENT: Denies: Ear Pain, Head Aches Skin: Denies: Lesions, Rash Pulmonary: Denies: Cough, Dyspnea Cardiovascular: Denies: Chest Pain, Palpitations Gastrointestinal: Denies: Nausea, Vomiting Genitourinary: Denies: Dysuria, Frequency Hematologic: Denies: Bleeding Excessively, Bruising Objective Physical Examination General Exam: Positive: Alert, Cooperative, No Acute Distress ENT Exam: Positive: Atraumatic, Mucous membr. moist/pink Neck Exam: Negative: JVD Chest Exam: Positive: Clear to auscultation, Normal air movement Heart Exam: Positive: Normal S1, Normal S2, Rate Normal Abdomen Exam: Positive: Soft, Negative: Tenderness Extremity Exam: Positive: Other (s/p Amputation of 3rd toe. Noted to be wrapped in surgical dressing with drain in place, draining minimal sersanguinous colored fluid) Assessment /Plan Plan/VTE VTE Prophylaxis Ordered?: Yes Plan Cellulitis of the left lower extremity s/p Amputation of the 3rd Toe on 07/[address] Ralph AVELAR with no evidence of osteomyelitis noted. Blood and wound cultures unrevealing thus far Cont vancomycin, zosyn for now for empiric coverage We will switch the patient to PO Antibiotics over the next 24-48hrs with Podiatry input Chronic Kidney Disease Unknown baseline serum creatinine (Baseline in 2013 was ~1.5) Serum creatinine at baseline We will cont to monitor Hyperkalemia, resolved Serum K wnl this AM on lab Diabetes mellitus type 1 Continue insulin pump therapy Hypertension Continue Norvasc Depression, fibromyalgia Continue Flexeril, Cymbalta, Xanax, Lyrica, and tramadol. Hyperlipidemia Continue statin. Chest pain, resolved EKG with no acute changes on admission Troponins negative x 3 We will cont to monitor the patient DVT prophylaxis: Heparin SC Dispo-s/p Amputation of the 3rd toe on 07/31. We will follow up on the patient's progress and transition him over to PO Abx soon, and have the patient evaluated by PT for further delineation of needs/services. VS, I&O, 24H, [facility] Vital Signs/I&O Vital Signs Date Time Temp Pulse Resp B/P Pulse Ox O2 Delivery O2 Flow Rate FiO2 08/02/16 08:33 82 135/87 08/02/16 06:00 97.8 18 95 Room Air I&O- Last 24 Hours up to 6 AM 08/02/16 06:00 Intake Total 2330 ml Output Total 430 ml Balance 1900 ml Laboratory Data 24H LABS Laboratory Tests 2 08/01/16 17:15: Bedside Glucose (Misc Panel) 296H 08/01/16 20:09: Bedside Glucose (Misc Panel) 344H 08/02/16 05:50: Anion Gap 9, C-Reactive Protein, Quantitative 2.06H, Blood Urea Nitrogen 9, Creatinine 1.39H, Sodium Level 141, Potassium Level 4.4, Chloride Level 107, Carbon Dioxide Level 25, Calcium Level 8.6, Glomerular Filtration Rate 57.8L, Magnesium Level 1.6L 08/02/16 05:51: White Blood Count 11.8H, Red Blood Count 3.73L, Hemoglobin 11.0L, Hematocrit 34.4L, Mean Corpuscular Volume 92.2, Mean Corpuscular Hemoglobin 29.6, Mean Corpuscular Hemoglobin Concent 32.1, Red Cell Distribution Width 13.2, Platelet Count 539H, Neutrophils (%) (Auto) 61.6, Lymphocytes (%) (Auto) 24.1, Monocytes (%) (Auto) 6.6H, Eosinophils (%) (Auto) 4.6H, Basophils (%) (Auto) 1.0, Neutrophils # (Auto) 7.3, Lymphocytes # (Auto) 3.1, Monocytes # (Auto) 0.8, Eosinophils # (Auto) 0.5, Basophils # (Auto) 0.1, Large Unclassified Cells # 0.3 , Large Unclassified Cells % 2.1 CBC/BMP Laboratory Tests 08/02/16 05:50 Calcium Level 8.6 08/02/16 05:51 Red Blood Count 3.73 L, Mean Corpuscular Volume 92.2, Mean Corpuscular Hemoglobin 29.6, Mean Corpuscular Hemoglobin Concent 32.1, Red Cell Distribution Width 13.2, Neutrophils (%) (Auto) 61.6, Lymphocytes (%) (Auto) 24.1, Monocytes (%) (Auto) 6.6 H, Eosinophils (%) (Auto) 4.6 H, Basophils (%) ( Auto) 1.0, Neutrophils # (Auto) 7.3, Lymphocytes # (Auto) 3.1, Monocytes # (Auto ) 0.8, Eosinophils # (Auto) 0.5, Basophils # (Auto) 0.1 Microbiology Microbiology 07/28/16 Blood Culture - Preliminary, Resulted No Growth after 72 hours. All specime... 07/31/16 Gram Stain - Final, Resulted 07/31/16 Wound Culture, Resulted Pending 07/31/16 Anaerobic Culture - Final, Resulted 07/28/16 Gram Stain - Final, Complete 07/28/16 Wound Culture - Final, Complete Staph.aureus Methicillin Resis Staphylococcus Sp Coag Neg Corynebacterium Species MIKHAIL JONES MD Aug 02, 2016 12:00
--- NOTE | 2016-08-02 13:03 | IPN ---
DATE: 08/01/2016 The patient is seen and examined at bedside. Denies overnight complaints. States pain is controlled presently by Percocet and morphine. VITAL SIGNS: The patient is afebrile overnight. Blood pressure 158/84. LABORATORY DATA: C-reactive protein is down to 3.29 from 5.78. White blood cell count is 10.8. Hemoglobin is 11. OR cultures are pending. Pathology is pending. Lower extremity examination: Dressing is clean, dry and intact. TLS drain is functioning. It was changed. Approximately half of the tube was filled this morning. ASSESSMENT: 50-year-old male with cellulitis and local abscess of the left third toe status post amputation. PLAN: Continue drain care. Most likely will be removed tomorrow. We will do dressing change tomorrow and most likely discharged on Wednesday on oral Bactrim pending culture results. The patient will likely need home nursing care for dressing changes. We will followup tomorrow.
[2016-08-02 14:00] VITALS: BP 140/80
--- NOTE | 2016-08-02 14:37 | IPNPDOC ---
Subjective Date Seen The patient was seen on 08/02/16. Subjective Chief Complaint/HPI The patient is a 50-year-old male admitted with a reason for visit of Cellulitis Of Left Foot. General: Denies: Chills, Night Sweats Constitutional: Denies: Chills, Fever Eyes: Denies: Pain, Vision change ENT: Denies: Ear Pain, Head Aches Skin: Denies: Lesions, Rash Pulmonary: Denies: Cough, Dyspnea Cardiovascular: Denies: Chest Pain, Palpitations Gastrointestinal: Denies: Nausea, Vomiting Genitourinary: Denies: Dysuria, Frequency Hematologic: Denies: Bleeding Excessively, Bruising Objective Physical Examination General Exam: Positive: Alert, Cooperative, No Acute Distress ENT Exam: Positive: Atraumatic, Mucous membr. moist/pink Neck Exam: Negative: JVD Chest Exam: Positive: Clear to auscultation, Normal air movement Heart Exam: Positive: Normal S1, Normal S2, Rate Normal Abdomen Exam: Positive: Soft, Negative: Tenderness Extremity Exam: Positive: Other (s/p Amputation of 3rd toe on the left toe. Noted to be wrapped in surgical dressing with drain in place, draining minimal sersanguinous colored fluid)) Assessment /Plan Plan/VTE VTE Prophylaxis Ordered?: Yes Plan Cellulitis of the left lower extremity s/p Amputation of the 3rd Toe on 07/[address] Rosas MRI with no evidence of osteomyelitis noted. Blood and wound cultures unrevealing thus far Cont vancomycin, zosyn for now for empiric coverage We will switch the patient to PO Bactrim and hope to D/C on 08/03 Chronic Kidney Disease Unknown baseline serum creatinine (Baseline in 2013 was ~1.5) Serum creatinine 1.4 today We will cont to monitor Hyperkalemia, resolved Serum K wnl this AM on lab Diabetes mellitus type 1 Continue insulin pump therapy Hypertension Continue Norvasc Depression, fibromyalgia Continue Flexeril, Cymbalta, Xanax, Lyrica, and tramadol. Hyperlipidemia Continue statin. Chest pain, resolved EKG with no acute changes on admission Troponins negative x 3 We will cont to monitor the patient DVT prophylaxis: Heparin SC Dispo-s/p Amputation of the 3rd toe on 07/31. We will follow up on the patient's progress and transition him over to PO Abx soon, and have the patient evaluated by PT for further delineation of needs/services. VS, I&O, 24H, [facility] Vital Signs/I&O Vital Signs Date Time Temp Pulse Resp B/P Pulse Ox O2 Delivery O2 Flow Rate FiO2 08/02/16 08:33 82 135/87 08/02/16 06:00 97.8 18 95 Room Air I&O- Last 24 Hours up to 6 AM 08/02/16 06:00 Intake Total 2330 ml Output Total 430 ml Balance 1900 ml Laboratory Data 24H LABS Laboratory Tests 2 08/01/16 17:15: Bedside Glucose (Misc Panel) 296H 08/01/16 20:09: Bedside Glucose (Misc Panel) 344H 08/02/16 05:50: Anion Gap 9, C-Reactive Protein, Quantitative 2.06H, Blood Urea Nitrogen 9, Creatinine 1.39H, Sodium Level 141, Potassium Level 4.4, Chloride Level 107, Carbon Dioxide Level 25, Calcium Level 8.6, Glomerular Filtration Rate 57.8L, Magnesium Level 1.6L 08/02/16 05:51: White Blood Count 11.8H, Red Blood Count 3.73L, Hemoglobin 11.0L, Hematocrit 34.4L, Mean Corpuscular Volume 92.2, Mean Corpuscular Hemoglobin 29.6, Mean Corpuscular Hemoglobin Concent 32.1, Red Cell Distribution Width 13.2, Platelet Count 539H, Neutrophils (%) (Auto) 61.6, Lymphocytes (%) (Auto) 24.1, Monocytes (%) (Auto) 6.6H, Eosinophils (%) (Auto) 4.6H, Basophils (%) (Auto) 1.0, Neutrophils # (Auto) 7.3, Lymphocytes # (Auto) 3.1, Monocytes # (Auto) 0.8, Eosinophils # (Auto) 0.5, Basophils # (Auto) 0.1, Large Unclassified Cells # 0.3 , Large Unclassified Cells % 2.1 08/02/16 11:59: Bedside Glucose (Misc Panel) 325H CBC/BMP Laboratory Tests 08/02/16 05:50 Calcium Level 8.6 08/02/16 05:51 Red Blood Count 3.73 L, Mean Corpuscular Volume 92.2, Mean Corpuscular Hemoglobin 29.6, Mean Corpuscular Hemoglobin Concent 32.1, Red Cell Distribution Width 13.2, Neutrophils (%) (Auto) 61.6, Lymphocytes (%) (Auto) 24.1, Monocytes (%) (Auto) 6.6 H, Eosinophils (%) (Auto) 4.6 H, Basophils (%) ( Auto) 1.0, Neutrophils # (Auto) 7.3, Lymphocytes # (Auto) 3.1, Monocytes # (Auto ) 0.8, Eosinophils # (Auto) 0.5, Basophils # (Auto) 0.1 Microbiology Microbiology 07/28/16 Blood Culture - Preliminary, Resulted No Growth after 72 hours. All specime... 07/31/16 Gram Stain - Final, Resulted 07/31/16 Wound Culture, Resulted Pending 07/31/16 Anaerobic Culture - Final, Resulted 07/28/16 Gram Stain - Final, Complete 07/28/16 Wound Culture - Final, Complete Staph.aureus Methicillin Resis Staphylococcus Sp Coag Neg Corynebacterium Species MIKHAIL JONES MD Aug 02, 2016 14:37
[2016-08-02] MEDS: BACTRIM 160MG/800MG DS TAB PO SCH (20:22)
[2016-08-02 22:00] VITALS: BP 169/87
[2016-08-03] MEDS: HEPARIN SOD (PORCINE) 5000 UNITS/ML VIAL SQ SCH ×2 (05:09→14:00)
[2016-08-03 06:00] VITALS: BP 169/72
[2016-08-03 07:22] LABS: BASO # 0.1 K/mm3 (0.0-0.2); BASO % 0.6 % (0.0-1.0); EOS # 0.4 K/mm3 (0.0-0.50); EOS % 3.4 % (0.0-3.0); LARGE UNSTAINED CELL # 0.2 K/mm3 (0.0-0.4); LARGE UNSTAINED CELL % 1.6 % (0.0-4.0); LYMPH # 2.8 K/mm3 (1.5-4.5); LYMPH % 21.8 % (24.0-44.0); MEAN CORPUSCULAR HGB CONC 31.8 g/dl (32.0-36.5); MEAN CORPUSCULAR VOLUME 91.1 fl (80.0-96.0); MONO # 0.6 K/mm3 (0.0-0.8); NEUTROPHILS # 8.6 K/mm3 (1.8-7.7); NEUTROPHILS % 67.7 % (36.0-66.0); PLATELET COUNT, AUTOMATED 574 k/mm3 (150-450); WHITE BLOOD COUNT 12.8 K/mm3 (4.0-10.0)
[2016-08-03 07:31] LABS: CALCIUM LEVEL 8.9 MG/DL (8.5-10.1); CREATININE FOR GFR 1.42 MG/DL (0.70-1.30); GLOMERULAR FILTRATION RATE 56.4 (>60); MAGNESIUM LEVEL 1.6 MG/DL (1.8-2.4)
[2016-08-03] MEDS: PANTOPRAZOLE 40MG TAB (PROTONIX) PO SCH (09:00)
[2016-08-03] MEDS: PREGABALIN 100 MG CAP (LYRICA) PO SCH (09:34)
[2016-08-03] MEDS: CYCLOBENZAPRINE 10 MG TAB PO SCH (09:34)
[2016-08-03] MEDS: BACTRIM 160MG/800MG DS TAB PO SCH (09:34)
[2016-08-03 09:35] VITALS: BP 169/72
[2016-08-03] MEDS: DULoxetine 30 MG CAP (CYMBALTA) PO SCH (09:35)
[2016-08-03] MEDS: ATORVASTATIN 20 MG TAB PO SCH (09:35)
[2016-08-03] MEDS ORDERED: SMZ-800T PO (10:05)
--- NOTE | 2016-08-03 12:05 | IPN ---
DATE OF SERVICE: 08/02/2016 Patient seen and examined at bedside. States feeling better, less pain in his foot. Vitals reviewed. He has been afebrile over 24 hours. Blood pressure is 135/87. LABS: WBC 11.8, CRP is 2.06 down from 3.29. Microbiology: Final anaerobic cultures from OR are pending. Patient grew Methicillin-resistant staphylococcus aureus (MRSA), coagulase negative Staphylococcus and corynebacterium. These are sensitive to Bactrim. Pathology is pending. Lower extremity examination: The drain has loosened and been removed on its own. Incision is inspected, well coapted. Sutures in place. Good capillary refill to skin margins. Improvement in erythema to foot. ASSESSMENT: 50-year-old male status post left third toe amputation. PLAN: Okay to discharge tomorrow on oral Bactrim for 2 weeks. Patient will followup with me in 2 weeks on the week of the . Recommend home health care for dressing changes. Dressing changes will be dry gauze dressing changed every other day. Okay to ambulate in postoperative shoe.
[2016-08-03] MEDS ORDERED: BACT800T5 PO (14:55)
--- NOTE | 2016-08-03 15:07 | DS.PDOC ---
Discharge Summary General Date of Admission Jul 28, 2016 at 18:44 Date of Discharge Aug 03, 2016 at 14:50 Specialist/Consultants Involve Dr. Rosas of Podiatry Discharge Summary PROCEDURES PERFORMED DURING STAY: Amputation of the third toe on the left foot ADMITTING DIAGNOSES: 1. . Cellulitis of the left foot, status post amputation of the third toe on the left foot 2. . Diabetes mellitus 3. . CKD DISCHARGE DIAGNOSES: 1. . Cellulitis of the left foot, status post amputation of the third toe on the left foot 2. . Diabetes mellitus 3. . CKD COMPLICATIONS/CHIEF COMPLAINT: Cellulitis Of Left Foot. HISTORY OF PRESENT ILLNESS: . 50-year-old male with past medical history of type 1 diabetes mellitus, hypertension, hyperlipidemia, fibromyalgia, depression who presented with worsening erythema and open sore on his left third toe. He reported that he had been following with podiatry for several months for this wound in the [facility], and last week he was started on Bactrim. He came to the ER because he was concerned it was getting more red and starting to spread into his calf, so he called his instrumentation and control technician, who recommended that he come to the ER for further evaluation and management. An MRI of the left foot revealed no evidence of osteomyelitis. The patient was admitted to the hospital service for further evaluation and management. The patient was started on empiric antibiotic therapy, and a consult to podiatry was placed. After being evaluated by podiatry, it was decided that the patient would have amputation of the third toe, which was subsequently performed on 07/[address] Rosas. Of note, during the patient's hospitalization blood cultures have been negative and wound cultures have been notable for MRSA, Corynebacterium species, Staphylococcus coag negative species. At this time, the patient states that he is feeling well, and he will be transitioned to by mouth Bactrim to be taken for the next 14 days as per recommendations from podiatry. The patient was seen by physical therapy today, and they have cleared him to return back home. I've advised the patient to follow-up with his primary care physician within one week. In addition I have also advised the patient to follow-up with podiatry for further evaluation and monitoring. Finally, the patient was set up with wound care nurses who will follow-up with the patient as an outpatient for further of the patient's wound dressing changes. DISCHARGE MEDICATIONS: Please see below. ALLERGIES: Please see below. PHYSICAL EXAMINATION ON DISCHARGE: VITAL SIGNS: Please see below. General Exam: Positive: Alert, Cooperative, No Acute Distress ENT Exam: Positive: Atraumatic, Mucous membr. moist/pink Neck Exam: Negative: JVD Chest Exam: Positive: Clear to auscultation, Normal air movement Heart Exam: Positive: Normal S1, Normal S2, Rate Normal Abdomen Exam: Positive: Soft, Negative: Tenderness Extremity Exam: Positive: Other (s/p Amputation of 3rd toe on the left toe. Noted to be wrapped in surgical dressing with drain in place, draining minimal sersanguinous colored fluid)) LABORATORY DATA: Please see below. IMAGING: General Exam: Positive: Alert, Cooperative, No Acute Distress ENT Exam: Positive: Atraumatic, Mucous membr. moist/pink Neck Exam: Negative: JVD Chest Exam: Positive: Clear to auscultation, Normal air movement Heart Exam: Positive: Normal S1, Normal S2, Rate Normal Abdomen Exam: Positive: Soft, Negative: Tenderness Extremity Exam: Positive: Other (s/p Amputation of 3rd toe on the left toe. Noted to be wrapped in surgical dressing with drain in place, draining minimal sersanguinous colored fluid)) PROGNOSIS: Medically Stable ACTIVITY: As tolerated. DIET: .Carb Consistent Diet DISCHARGE PLAN: DISPOSITION: [address] [place] [address] Service. DISCHARGE INSTRUCTIONS: 1. . Follow-up with podiatry in 1-2 weeks 2. . Follow up with primary care physician within one to 2 weeks DISCHARGE CONDITION: Stable. TIME SPENT ON DISCHARGE: Greater than 30 minutes. Vital Signs/I&Os Vital Signs Date Time Temp Pulse Resp B/P Pulse Ox O2 Delivery O2 Flow Rate FiO2 08/03/16 09:35 80 169/72 08/03/16 06:00 97.4 20 97 Room Air I&O- Last 24 Hours up to 6 AM 08/03/16 06:00 Intake Total 1590 ml Balance 1590 ml Laboratory Data Labs 24H Laboratory Tests 2 08/02/16 16:51: Bedside Glucose (Misc Panel) 308H 08/02/16 20:30: Bedside Glucose (Misc Panel) 100 08/03/16 06:55: Anion Gap 6L, White Blood Count 12.8H, Red Blood Count 4.20L, Hemoglobin 12.2L, Hematocrit 38.3L, Mean Corpuscular Volume 91.1, Mean Corpuscular Hemoglobin 29.0 , Mean Corpuscular Hemoglobin Concent 31.8L, Red Cell Distribution Width 13.0, Platelet Count 574H, Neutrophils (%) (Auto) 67.7H, Lymphocytes (%) (Auto) 21.8L , Monocytes (%) (Auto) 5.0, Eosinophils (%) (Auto) 3.4H, Basophils (%) (Auto) 0.6, Neutrophils # (Auto) 8.6H, Lymphocytes # (Auto) 2.8, Monocytes # (Auto) 0.6 , Eosinophils # (Auto) 0.4, Basophils # (Auto) 0.1, C-Reactive Protein, Quantitative 1.68H, Blood Urea Nitrogen 11, Creatinine 1.42H, Sodium Level 142, Potassium Level 5.0, Chloride Level 110H, Carbon Dioxide Level 26, Calcium Level 8.9, Glomerular Filtration Rate 56.4L, Large Unclassified Cells # 0.2, Large Unclassified Cells % 1.6, Magnesium Level 1.6L 08/03/16 11:35: Bedside Glucose (Misc Panel) 339H CBC/BMP Laboratory Tests 08/03/16 06:55 Calcium Level 8.9, Red Blood Count 4.20 L, Mean Corpuscular Volume 91.1, Mean Corpuscular Hemoglobin 29.0, Mean Corpuscular Hemoglobin Concent 31.8 L, Red Cell Distribution Width 13.0, Neutrophils (%) (Auto) 67.7 H, Lymphocytes (%) ( Auto) 21.8 L, Monocytes (%) (Auto) 5.0, Eosinophils (%) (Auto) 3.4 H, Basophils (%) (Auto) 0.6, Neutrophils # (Auto) 8.6 H, Lymphocytes # (Auto) 2.8, Monocytes # (Auto) 0.6, Eosinophils # (Auto) 0.4, Basophils # (Auto) 0.1 FSBS Laboratory Tests Test 08/02/16 16:51 08/02/16 20:30 08/03/16 11:35 Range/Units Bedside Glucose (Misc Panel) 308 100 339 70-105 MG/DL Microbiology Microbiology 07/28/16 Blood Culture - Final, Complete NO GROWTH AFTER 5 DAYS 07/31/16 Gram Stain - Final, Complete 07/31/16 Wound Culture - Final, Complete Staphylococcus Sp Coag Neg 07/31/16 Anaerobic Culture - Final, Complete 07/28/16 Gram Stain - Final, Complete 07/28/16 Wound Culture - Final, Complete Staph.aureus Methicillin Resis Staphylococcus Sp Coag Neg Corynebacterium Species Discharge Medications Scheduled Amlodipine Besylate (Amlodipine Besylate) 2.5 Mg Tab 2.5 MG PO DAILY (Reported ) Atorvastatin Calcium (Atorvastatin Calcium) 40 Mg Tab 40 MG PO DAILY (Reported ) Cyclobenzaprine HCl (Cyclobenzaprine HCl) 10 Mg Tab 10 MG PO DAILY (Reported) Duloxetine Hcl (Duloxetine HCl) 30 Mg Cap 30 MG PO DAILY (Reported) STARTED 30MG FOR 7 DAYS ON 07/27, THEN INCREASING TO 60 MG Esomeprazole Magnesium Trihydr (Nexium) 40 Mg Cap 40 MG PO DAILY (Reported) Fenofibrate (Fenofibrate) 54 Mg Tab 54 MG PO DAILY (Reported) Insulin Aspart (Novolog) 100 U/Ml Inj 0 ASDIRECTED (Reported) INSULIN PUMP Insulin Human Regular (Humulin R) 1 Units/0.01 Ml Soln 1 DOSE SC ASDIRECTED ( Reported) FOR INSULIN PUMP FAILURE Lisinopril (Lisinopril) 2.5 Mg Tab 2.5 MG PO DAILY (Reported) Pregabalin (Lyrica) 300 Mg Cap 300 MG PO TID (Reported) Trimethoprim/Sulfamethoxazole (Bactrim Ds 800-160 mg) 1 Tab Tab 1 TAB PO BID Scheduled PRN Alprazolam (Xanax) 0.25 Mg Tab 0.25 MG PO TID PRN PRN ANXIETY (Reported) Lactic Acid (Lac-Hydrin) 12 % Lot 1 DOSE TOP BID PRN PRN DRY SKIN (Reported) APPLIES TO LEGS AND FEET Tramadol HCl (Tramadol HCl) 50 Mg Tab 50-100 MG PO Q4H PRN PRN PAIN (Reported) TOOK 2 TABS 0730 AND 1 TAB AT 1300 MDD=8 TABS Allergies Coded Allergies: Hydromorphone (Verified Allergy, Mild, RASH, 07/31/16) Oxycodone (Unverified Allergy, Mild, RASH, CAN TAKE WITH BENADRYL, 07/31/16 ) Fentanyl (Verified Adverse Reaction, Mild, ITCHING, 11/06/12) Morphine (Verified Adverse Reaction, Mild, ITCHING, 07/28/16) pt states he is not allergic to morphine it just makes him "itch after 2 or 3 doses". OK to take MIKHAIL JONES MD Aug 03, 2016 15:07
== END 2016-08-03 14:50 | disposition home health service (06) | DRG 617 ==
LOC: M ED 17:01 → M ED INP 18:44 → EEVIPCON 18:44 → M MS5PR 21:30
PROVIDERS: ADMIT Hospitalist; ATTEND Internal Medicine
PROC: 0Y6U0Z0 Detachment at Left 3rd Toe, Complete, Open Approach (ICD-10-PCS; principal; 2016-07-31 07:30)
DX: E10.621 Type 1 diabetes mellitus with foot ulcer (principal); L03.116 Cellulitis of left lower limb; E10.22 Type 1 diabetes mellitus with diabetic chronic kidney disease; N18.9 Chronic kidney disease, unspecified; I12.9 Hypertensive chronic kidney disease with stage 1 through stage 4 chronic kidney disease, or unspecified chronic kidney disease; E78.5 Hyperlipidemia, unspecified; M79.7 Fibromyalgia; Z79.899 Other long term (current) drug therapy; Z79.4 Long term (current) use of insulin; F41.9 Anxiety disorder, unspecified; Z88.5 Allergy status to narcotic agent; Z88.8 Allergy status to other drugs, medicaments and biological substances; F17.200 Nicotine dependence, unspecified, uncomplicated; E87.5 Hyperkalemia; Z83.3 Family history of diabetes mellitus; L97.529 Non-pressure chronic ulcer of other part of left foot with unspecified severity